=== PATIENT | female | born 1985 | race African-American/Black ===

== ENCOUNTER 2017-10-26 15:44 | Emergency (ER) | payer MEDICAID ==
[~2017-10-26] VITALS: Ht 149.9 cm; Wt 45.0 kg
[2017-10-26] MEDS ORDERED: SODIUM CHLORIDE 0.9% 1,000 ML IV ONE ×2 (17:15→21:05)
[2017-10-26 19:56] LABS: BASOPHILS % 1.1 % (0.0-2.0); EOSINOPHILS % 0.3 % (0.0-5.0); HEMATOCRIT. 42.2 % (36.0-48.0); HEMOGLOBIN. 14.3 g/dL (12.0-16.0); LYMPHOCYTES % 18.9 % (20.0-50.0); MEAN CORPUSCULAR HEMOGLOBIN 29.1 pg (28.0-32.0); MEAN PLATELET VOLUME 7.9 fl (7.4-10.4); MONOCYTES % 14.2 % (2.0-8.0); NEUTROPHILS % 65.5 % (40.0-76.0); PLATELET 287 x1000/uL (130-400); RED CELL DISTRIBUTION WIDTH 13.8 % (11.6-14.6)
[2017-10-26 20:00] LABS: CHLORIDE 103 mEq/L (98-107)
[2017-10-26] MEDS ORDERED: METOCLOPRAMIDE HCL 10MG/2ML VIAL IV ONE (21:15)
[2017-10-26 23:06] LABS: CLARITY URINE CLOUDY (CLEAR); COLOR URINE YELLOW (YELLOW); KETONES URINE 4+ (NEGATIVE); LEUKOCYTE ESTERASE URINE NEGATIVE (NEGATIVE); NITRITE URINE NEGATIVE (NEGATIVE); OCCULT BLOOD URINE NEGATIVE (NEGATIVE); PROTEIN URINE TRACE (NEGATIVE); SPECIFIC GRAVITY URINE 1.029 (1.005-1.030); UROBILINOGEN URINE 0.2 E.U./dL (0.2-1.0)
[2017-10-27 01:15] VITALS: BP 116/74
== END 2017-10-27 01:18 | disposition home or self-care (01) ==
LOC: ER 16:41
DX: O20.0 Threatened abortion (principal); O21.0 Mild hyperemesis gravidarum; Z3A.01 Less than 8 weeks gestation of pregnancy
CPT/HCPCS: 36415; 76801; 80053; 81003; 84702; 85025; 93005; 96361; 96374; 99285; J2765; J7030

== ENCOUNTER 2019-01-25 19:53 | Inpatient (IN) | payer MEDICAID ==
[~2019-01-25] VITALS: Ht 152.4 cm; Wt 60.3 kg
[~2019-01-25 19:53] MED LIST: ONDA4TAB5 PO
[2019-01-25] MEDS ORDERED: ONDANSETRON HCL 4MG/2ML INJ IV STA (20:43)
[2019-01-25] MEDS ORDERED: MORPHINE SULFATE 4 MG/ML CPJ (NOT FOR IM USE) IV STA (20:43)
[2019-01-25] MEDS ORDERED: SODIUM CHLORIDE 0.9% 1,000 ML IV ONE (20:43)
[2019-01-25] MEDS ORDERED: DIPHENHYDRAMINE 50MG/ML VIAL IV ONE (20:45)
[2019-01-25] MEDS ORDERED: MAGNESIUM/ALUMINUM HYDROXIDE/SIMETHICONE 30ML UDC PO ONE (20:45)
[2019-01-25] MEDS ORDERED: FAMOTIDINE 20MG/2ML VIAL IV ONE (20:45)
[2019-01-25 21:45] LABS: BASOPHILS % 0.1 % (0.0-2.0); HEMATOCRIT. 43.1 % (36.0-48.0); HEMOGLOBIN. 14.4 g/dL (12.0-16.0); LYMPHOCYTES % 7.6 % (20.0-50.0); MEAN CORPUSCULAR HEMOGLOBIN 28.2 pg (28.0-32.0); MEAN CORPUSCULAR VOLUME 84.6 fL (81.0-99.0); MEAN PLATELET VOLUME 8.5 fl (7.4-10.4); MONOCYTES % 8.5 % (2.0-8.0); NEUTROPHILS % 83.8 % (40.0-76.0); PLATELET 260 x1000/uL (130-400); RED CELL DISTRIBUTION WIDTH 15.7 % (11.6-14.6)
[2019-01-25 21:50] LABS: CHLORIDE 108 mEq/L (98-107)
[2019-01-25 21:53] LABS: HCG SCREEN NEGATIVE
[2019-01-25 22:16] LABS: ETHANOL BLOOD < 10 mg/dL
[2019-01-25] MEDS ORDERED: DEXTROSE 50% WATER 50ML SYRINGE IV ONE (22:18)
[2019-01-25] MEDS ORDERED: METRONIDAZOLE 500 MG PREMIX 100 ML IV ONE (23:15)
[2019-01-25] MEDS ORDERED: PIPERACILLIN/TAZ 3.375G PREMIX 50 ML IV ONE (23:15)
[2019-01-26 00:06] LABS: CLARITY URINE CLOUDY (CLEAR); COLOR URINE YELLOW (YELLOW); KETONES URINE 3+ (NEGATIVE); LEUKOCYTE ESTERASE URINE 3+ (NEGATIVE); NITRITE URINE POSITIVE (NEGATIVE); OCCULT BLOOD URINE 1+ (NEGATIVE); PROTEIN URINE 1+ (NEGATIVE); SPECIFIC GRAVITY URINE 1.014 (1.005-1.030); UROBILINOGEN URINE 0.2 E.U./dL (0.2-1.0)
[2019-01-26] MEDS ORDERED: LORAZEPAM 2MG/ML CPJ IV ONE (00:15)
[2019-01-26] MEDS ORDERED: KETOROLAC 30MG/ML VIAL IV ONE (00:15)
[2019-01-26 00:25] LABS: *AMPHETAMINES SCREEN URINE NEGATIVE (NEGATIVE); *BARBITURATES SCREEN URINE NEGATIVE (NEGATIVE); *BENZODIAZEPINES SCREEN URINE NEGATIVE (NEGATIVE); *COCAINE SCREEN URINE NEGATIVE (NEGATIVE); METHADONE URINE SCREEN NEGATIVE (NEGATIVE); PHENCYCLIDINE URINE SCREEN NEGATIVE (NEGATIVE)
[2019-01-26 00:26] LABS: CANNABINOID URINE SCREEN PRESUMTIVE POSITIVE (NEGATIVE); OPIATES URINE SCREEN PRESUMTIVE POSITIVE (NEGATIVE)
[2019-01-26 04:52] VITALS: BP 91/59
[2019-01-26 06:00] VITALS: BP 116/62
[2019-01-26 08:00] VITALS: BP 92/65
[2019-01-26] MEDS ORDERED: POTASSIUM CHLORIDE 20MEQ TABLET SR PO NR (09:45)
[2019-01-26] MEDS: MORPHINE SULFATE 2 MG/ML CPJ (NOT FOR IM USE) IV PRN ×3 (10:34→23:23)
[2019-01-26] MEDS: SODIUM CHLORIDE 0.45% 1,000 ML IV SCH ×2 (10:35→23:27)
[2019-01-26] MEDS: CEFTRIAXONE 1 G PREMIX 50 ML IV SCH (11:19)
[2019-01-26 12:00] VITALS: BP 116/65
[2019-01-26] MEDS ORDERED: KCL 20MEQ/100ML PREMIX 100 ML IV NR (12:00)
[2019-01-26] MEDS ORDERED: KETOROLAC 30MG/ML VIAL IV PRN (12:15)
[2019-01-26] MEDS ORDERED: HYDROCODONE/ACETAMINOPHEN 5/325MG TABLET PO PRN (12:15)
[2019-01-26 16:00] VITALS: BP 108/67
[2019-01-26] MEDS: ACETAMINOPHEN 325MG TABLET PO PRN (16:57)
[2019-01-26 20:00] VITALS: BP 110/69
[2019-01-27] VITALS: BP 112/71
[2019-01-27] MEDS: ACETAMINOPHEN 325MG TABLET PO PRN (00:50)
[2019-01-27 04:00] VITALS: BP 121/69
[2019-01-27] MEDS: MORPHINE SULFATE 2 MG/ML CPJ (NOT FOR IM USE) IV PRN ×4 (04:31→22:29)
[2019-01-27] MEDS ORDERED: DIPHENHYDRAMINE 50MG/ML VIAL IM PRN (05:00)
[2019-01-27] MEDS: ONDANSETRON HCL 4MG/2ML INJ IV PRN ×2 (06:19→15:00)
[2019-01-27] MEDS: DIPHENHYDRAMINE 50MG/ML VIAL IV PRN ×2 (06:20→15:00)
[2019-01-27 06:37] LABS: BASOPHILS % 0.3 % (0.0-2.0); EOSINOPHILS % 0.3 % (0.0-5.0); HEMATOCRIT. 35.7 % (36.0-48.0); LYMPHOCYTES % 15.7 % (20.0-50.0); MEAN CORPUSCULAR HEMOGLOBIN 27.8 pg (28.0-32.0); MEAN CORPUSCULAR VOLUME 83.1 fL (81.0-99.0); MEAN PLATELET VOLUME 8.3 fl (7.4-10.4); MONOCYTES % 10.9 % (2.0-8.0); NEUTROPHILS % 72.8 % (40.0-76.0); PLATELET 234 x1000/uL (130-400); RED CELL DISTRIBUTION WIDTH 15.7 % (11.6-14.6)
[2019-01-27 07:12] LABS: CHLORIDE 109 mEq/L (98-107)
[2019-01-27 08:00] VITALS: BP 131/84
[2019-01-27] MEDS ORDERED: ACETAMINOPHEN 650MG SUPP PR PRN (08:30)
[2019-01-27] MEDS ORDERED: POTASSIUM CHLORIDE 20MEQ TABLET SR PO NR (09:00)
[2019-01-27] MEDS: CEFTRIAXONE 1 G PREMIX 50 ML IV SCH (09:11)
[2019-01-27 12:00] VITALS: BP 112/69
[2019-01-27 16:00] VITALS: BP 116/75
[2019-01-27] MEDS ORDERED: METOCLOPRAMIDE HCL 10MG/2ML VIAL IV PRN (17:15)
[2019-01-27] MEDS ORDERED: DIPHENHYDRAMINE 50MG/ML VIAL IV NR (17:30)
[2019-01-28] MEDS: SODIUM CHLORIDE 0.45% 1,000 ML IV SCH ×2 (02:25→02:26)
[2019-01-28] MEDS: ONDANSETRON HCL 4MG/2ML INJ IV PRN (05:02)
[2019-01-28] MEDS: DIPHENHYDRAMINE 50MG/ML VIAL IV PRN (05:03)
[2019-01-28] MEDS ORDERED: LEVO500T2 MT (08:13)
[2019-01-28] MEDS: CEFTRIAXONE 1 G PREMIX 50 ML IV SCH (08:47)
[2019-01-28 09:18] LABS: CHLORIDE 108 mEq/L (98-107)
[2019-01-28 09:29] LABS: HEMATOCRIT. 37.5 % (36.0-48.0); HEMOGLOBIN. 12.6 g/dL (12.0-16.0); MEAN CORPUSCULAR HEMOGLOBIN 27.9 pg (28.0-32.0); MEAN CORPUSCULAR VOLUME 83.2 fL (81.0-99.0); PLATELET 266 x1000/uL (130-400); RED BLOOD CELL COUNT 4.51 mill/uL (4.2-5.4); RED CELL DISTRIBUTION WIDTH 15.5 % (11.6-14.6)
[2019-01-28] MEDS ORDERED: POTASSIUM CHLORIDE 20MEQ TABLET SR PO NR (13:15)
[2019-01-28 13:51] LABS: PLATELET ESTIMATE NORMAL
[2019-01-28 15:15] VITALS: BP 116/64
== END 2019-01-28 15:52 | disposition home or self-care (01) | DRG 720 ==
LOC: ER 19:53 → 6EST 23:59 → EDBEDREQTM 01-26 00:06 → EDBEDREQSVC 01-26 00:06 → EDBEDREQ 01-26 00:06 → ENRESERV 01-26 03:35
PROVIDERS: ADMIT Internal Medicine; ATTEND Internal Medicine
DX: A41.9 Sepsis, unspecified organism (principal); E87.2 Acidosis; K76.0 Fatty (change of) liver, not elsewhere classified; E87.8 Other disorders of electrolyte and fluid balance, not elsewhere classified; E87.6 Hypokalemia; K59.00 Constipation, unspecified; F12.920 Cannabis use, unspecified with intoxication, uncomplicated; N12 Tubulo-interstitial nephritis, not specified as acute or chronic; Z87.11 Personal history of peptic ulcer disease; Z98.891 History of uterine scar from previous surgery; Z88.8 Allergy status to other drugs, medicaments and biological substances
CPT/HCPCS: 36415; 74176; 80048; 80053; 80305; 80320; 81003; 83605; 83880; 84484; 84703; 85025; 87077; 87186; 99285; J0696; J1200; J1885; J2060; J2270; J2405; J2543; J2765; J3480; J3490; J7030; G0480